=== PATIENT | female | born 1995 | race Caucasian/White ===

== ENCOUNTER 2018-08-25 06:10 | Day surgery (SDC) | payer OTHER ==
[~2018-08-25] VITALS: Ht 162.6 cm; Wt 71.3 kg
[2018-08-25] MEDS ORDERED: PROPOFOL 200 MG INJ ONE (07:00)
[2018-08-25] MEDS ORDERED: PROPOFOL 60 ML ONE ×2 (07:37→08:37)
[2018-08-25] MEDS ORDERED: LIDOCAINE 2% (SDV) 5 ML INJ ONE ×2 (07:38→08:37)
[2018-08-25 07:46] VITALS: Ht 162.6 cm; Wt 71.3 kg
[2018-08-25 08:08] VITALS: BP 102/69; PULSE 74; RESP 18
--- NOTE | 2018-08-25 08:31 | PREAC ---
Date/Time of Note Date/Time of Note DATE: 08/25/18 TIME: 08:30 Anesthesia Eval and Record Evaluation Time Pre-Procedure Interview DATE: 08/25/18 TIME: 08:30 Age 22 Sex female NPO: 8 hrs Preoperative diagnosis RECTAL BLEEDING Planned procedure COLONOSCOPY Past Medical History Past Medical History: None Surgery & Anesthesia Issues No known issue Meds Anticoagulation: No Beta Jerome within 24 hr: No Reason Beta Jerome not given: Pt. not on B-Jerome Reported Medications [None] No Conflict Check 08/25/18 Meds reviewed: Yes Allergies Coded Allergies: No Known Drug Allergies (Verified Allergy, Unknown, 12/13/11) Allergies Reviewed: Yes Labs/Studies Labs Reviewed: Reviewed by anesthesiologist test: Negative Pre-procedure Exam Last vitals Vital Signs Date Temp Pulse Resp B/P (MAP) Pulse Ox O2 O2 Flow FiO2 Time Delivery Rate 08/25/18 98.0 74 18 102/69 99 Room Air 08:08 (80) Airway: Adequate mouth opening, Adequate thyromental dist Mallampati: Mallampati I Teeth: Normal Lung: Normal Heart: Normal ASA Physical Status ASA physical status: 1 Emergency: None Planned Anesthetic General/MAC: MAC Planned Pain Management Parenteral pain med Pre-operative Attestations Prior to commencing anesthesia and surgery, the patient was re-evaluated, there was verification of: *The patient's identity *The results of appropriate recent lab work and preoperative vital signs *The above evaluation not changing prior to induction *Anesthetic plan, risk benefits, alternative and complications discussed with patient/family; questions answered; patient/family understands, accepts and wishes to proceed. EVELIN DIAL Aug 25, 2018 08:31
[2018-08-25] MEDS ORDERED: ONDANSETRON 4 MG INJ IV PRN (09:00)
[2018-08-25] MEDS ORDERED: METOCLOPRAMIDE 10 MG INJ IV PRN (09:00)
[2018-08-25] MEDS ORDERED: LABETALOL HCL 20MG INJ IV PRN (09:00)
[2018-08-25] MEDS ORDERED: hydrALAzine 20 MG INJ IV PRN (09:00)
[2018-08-25] MEDS ORDERED: FENTAnyl 50 MCG/ML VIAL IV PRN (09:00)
[2018-08-25] MEDS ORDERED: EPHEDrine SULFATE 50 MG/5 ML SYG IV PRN (09:00)
--- NOTE | 2018-08-25 09:23 | PAC ---
Date/Time of Note Date/Time of Note DATE: 08/25/18 TIME: 09:22 Post-Anesthesia Notes Post-Anesthesia Note Last documented vital signs Vital Signs Date Temp Pulse Resp B/P (MAP) Pulse Ox O2 O2 Flow FiO2 Time Delivery Rate 08/25/18 98.0 74 18 102/69 99 Room Air 0922 (80) Activity: WNL Respiratory function: WNL Cardiovascular function: WNL Mental status: Baseline Pain reasonably controlled: Yes Hydration appropriate: Yes Nausea/Vomiting absent: Yes EVELIN DIAL Aug 25, 2018 09:22
== END 2018-08-25 13:32 | disposition home or self-care (01) ==
LOC: GIL 06:10
PROVIDERS: ATTEND Internal Medicine Gastroenterology
DX: K64.0 First degree hemorrhoids (principal)
CPT/HCPCS: 45378; 84703; 88305; Z7610